=== PATIENT | female | born 1965 | race Caucasian/White ===

== ENCOUNTER → 2017-01-22 | Outpatient (REF) ==
--- NOTE | 2017-01-23 03:35 | REP ---
Clinical: Pain and disability. Technique: Frontal view of the pelvis with neutral and frog lateral views of the bilateral hips. Findings: Pelvis is intact. The bilateral hip joints are symmetric and relatively normal for age. Minimal increased sclerosis to the acetabular roof noted bilaterally and again relatively normal for age. The joint spaces are symmetric and within normal limits. No periarticular calcifications. Surrounding soft tissues normal. Impression: Relatively normal age appropriate pelvis/bilateral hip series. Signed by Lowell Mcnally MD 01/23/2017 03:27 A
--- NOTE | 2017-01-23 05:12 | REP ---
Clinical: Pain and disability. Technique: AP, lateral, coned-down views of the lumbosacral spine. Findings: Alignment and lordosis maintained. Moderate/early advanced degenerative disc osteophyte complex at the L4-5 and L5-L1 levels includes marginal spurring, endplate sclerosis, disc space narrowing and hypertrophic facet changes. Moderate degenerative changes are also appreciated involving the visualized lower thoracic spine. No acute fracture / compression injury or subluxation. Impression: Degenerative changes primarily involving the lower lumbar spine. Signed by Lowell Mcnally MD 01/23/2017 05:04 A
== END ==
LOC: M SMT 13:02
PROVIDERS: ATTEND Internal Medicine
DX: Z00.00 Encounter for general adult medical examination without abnormal findings (principal)

== ENCOUNTER → 2017-03-26 | Outpatient (CLI) | payer OTHER ==
[~2017-03-26] MED LIST: GABA-279 PO; GABA-283 PO; HYDR-2808 PO; MORP15TASA PO; PAME25CA PO; TIZA4CAP3 PO; TRAM50TA2 PO
== END ==
LOC: M LAB 10:44
PROVIDERS: ATTEND Orthopaedic Surgery
DX: Z01.818 Encounter for other preprocedural examination (principal)

== ENCOUNTER 2017-04-03 06:14 | Inpatient (IN) | payer OTHER ==
--- NOTE | 2017-04-01 14:44 | HPE ---
DATE OF ADMISSION: 04/03/2017 ATTENDING PHYSICIAN: Dr. Kat CHIEF COMPLAINT: Work-related injury to her back with back pain radiating to her right leg. HISTORY: This is a pleasant 52-year-old female patient with ongoing back pain since an injury at work on 04/29/2016. She has had persistent pain in her back since original injury. She has been through physical therapy, activity modification, medical management and medication management of her symptoms and injections without improvement of her symptoms. She continues have pain with normal day-to-day activities and activities of daily living. Pain radiates down into her leg right leg. She rates her pain as an 8 out of 10. She has elected for surgery for continued symptoms. She has consented for a right unilateral laminectomy at L4-5 with the interbody fusion at L4-5 with the use of right iliac crest graft and posterolateral fusion the use of the crest graft and pedicle screws. X-rays are notable for transitional anatomy at L5-S1 with a decreased disc space and degenerative changes at L4 above the transitional motion segment. MRI is consistent with a degenerative disc at 4/5 above a transitional motion segment with lesser degree at degenerative changes of 3/4 with some lateral stenosis at 4/5. ALLERGIES: DEMEROL. CURRENT MEDICATIONS - hydrocodone 5/325 as needed for pain - naproxen 375 mg 1 tablet twice a day. She discontinued that 3 days ago. - gabapentin 400 mg one tablet in morning and one tablet in the afternoon. Three tablets at bedtime - Zanaflex 4 mg one tablet up to three times a day MEDICAL HISTORY: Lumbar spondylosis and lumbar degenerative disc disease all related to a work-related injury with positive nerve conduction studies with L5 radiculopathy noted on nerve conduction studies. PAST SURGICAL HISTORY: She has had appendectomy, ear surgery and bilateral tubal ligation. SOCIAL HISTORY: She does not currently smoke. She occasionally uses alcohol. FAMILY HISTORY: Noncontributory. REVIEW OF SYSTEMS: Denies fever or chills. Denies chest pain, shortness breath or cough. Denies difficulty breathing. Denies abdominal pain. Denies nausea or vomiting. Denies recent upper respiratory infection or urinary tract infection (UTI) symptoms. Notes persistent back pain with pain down her right leg. Denies nausea or vomiting. PHYSICAL EXAMINATION: Physical examination today reveals a well-nourished, well-developed, alert female patient. She has a normal mood and affect. She walks with a slow gait. She does wear a lumbar brace. Her gait is slow. She grimaces going from a seated to standing position. The skin around the back is intact. No erythema, edema or ecchymosis. Deep tendon reflexes are trace at the knees, trace at the left ankle and absent at the right ankle. Straight leg raise testing is irritable bilaterally. Neck is supple without adenopathy or jugular venous distention (JVD). Lungs are clear to auscultation without rales or wheeze. Heart with regular rate and rhythm. Bowel sounds are notable. The bilateral lower extremities are well-perfused. CURRENT VITAL SIGNS: Height 63 inches, weight 186 pounds, temperature 99.5, blood pressure 120/90, pulse 96, respirations 18. IMPRESSION: Symptomatic lumbar degenerative disc disease and lumbar spondylolysis with radiculopathy from a work-related injury. PLAN: She has consented for a right unilateral laminectomy L4-5 above an abnormal motion segment with interbody fusion at L4-5 and posterolateral fusion at L4-5 with pedicle screws and right iliac crest graft. LABORATORY DATA: Hemoglobin is 12.6. Her nasal cultures were positive from methicillin resistant Staphylococcus aureus (MRSA) and she was treated per the protocol. Her antibiotic will be switched to vancomycin 1 gram IV prior to the operating room.
[~2017-04-03] VITALS: Ht 157.5 cm; Wt 83.9 kg
[~2017-04-03 06:14] MED LIST changes: -MORP15TASA PO; -TRAM50TA2 PO
[2017-04-03] MEDS ORDERED: CelecoXIB (CeleBREX) 100 MG CAP PO ONE (06:45)
[2017-04-03] MEDS ORDERED: PERCOCET 5MG/325MG TAB PO ONE (06:45)
[2017-04-03] MEDS ORDERED: PREGABALIN 75 MG CAP(LYRICA) PO ONE (06:45)
[2017-04-03] MEDS ORDERED: VANCOMYCIN HCL 1,000 MG, VIAL MATE ADAPTER 1 EACH in D5W 250 ML IV ONE ×3 (06:45→19:00)
[2017-04-03] MEDS ORDERED: LR 1,000 ML IV ONE (07:00)
[2017-04-03] MEDS ORDERED: LIDOCAINE 1% MDV 20ML VIAL SC ONE (07:00)
[2017-04-03] MEDS ORDERED: fentaNYL 250 MCG/5 ML INJECTION (J3010) As Ordered ONE (07:16)
[2017-04-03] MEDS ORDERED: ROCURONIUM BROMIDE 50 MG/5 ML VIAL/SYRINGE As Ordered ONE ×2 (07:16→09:04)
[2017-04-03] MEDS ORDERED: PROPOFOL 200 MG/20 ML VIAL As Ordered ONE ×2 (07:16→12:49)
[2017-04-03] MEDS ORDERED: LIDOCAINE 2% INJ 100 MG/5 ML SDV (FOR ANES.) As Ordered ONE (07:16)
[2017-04-03] MEDS ORDERED: MIDAZOLAM INJ 2 MG/2 ML VIAL (J2250) As Ordered ONE (07:16)
[2017-04-03] MEDS ORDERED: BUPIVACAINE/EPIN 0.25% 30 ML VIAL As Ordered ONE (07:17)
[2017-04-03] MEDS ORDERED: THROMBIN SOLN 20,000 UNITS KIT As Ordered ONE (07:17)
[2017-04-03] MEDS ORDERED: VANCOMYCIN HCL 500 MG/10 ML VIAL (J3370) As Ordered ONE (07:17)
[2017-04-03] MEDS ORDERED: BACITRACIN PWD 50,000 UNITS VIAL As Ordered ONE (07:18)
[2017-04-03] MEDS ORDERED: ceFAZolin 1GM INJ (J0690) As Ordered ONE ×2 (08:16→12:39)
[2017-04-03] MEDS ORDERED: HYDROmorphone HCL 2 MG/ML 1ML VIAL (J1170) As Ordered ONE (08:22)
[2017-04-03] MEDS ORDERED: PHENYLephrine HCL 500 MCG/5 ML (100MCG/ML) SYRINGE (J2370) As Ordered ONE ×2 (08:27→09:02)
[2017-04-03] MEDS ORDERED: ePHEDrine SULFATE 25 MG/5 ML(5MG/ML) SYRINGE As Ordered ONE ×2 (08:43→14:46)
[2017-04-03] MEDS ORDERED: GLYCOPYRROLATE INJ 0.2 MG/ML 2 ML VIAL As Ordered ONE (08:50)
[2017-04-03] MEDS ORDERED: ONDANSETRON 4MG/2ML VIAL (J2405) As Ordered ONE (08:51)
[2017-04-03] MEDS ORDERED: NEOSTIGMINE 1MG/ML 5 ML SYRINGE (J2710) As Ordered ONE (08:51)
[2017-04-03] MEDS ORDERED: PHENYLEPHRINE INJ 10MG/ML VIAL (J2370) As Ordered ONE (09:05)
--- NOTE | 2017-04-03 13:18 | REP ---
Partial lumbar spine series: Three views. History: Spondylosis with radiculopathy. Lumbar spine fusion. 2 minutes 6 seconds of fluoroscopy time is reported. Findings: Initial cross-table lateral portable view of the lumbar spine time stamped 8:48 a.m. demonstrates an intraoperative probe at the dorsal aspect of the lumbar canal at the level of the L4-5 disc. This disc is narrowed. Frontal and lateral fluoroscopically obtained intraprocedural spot radiographs of the lumbar spine demonstrate transpedicular screw and interconnecting shelia fusion bilaterally across the 4-5 level and an interbody disc space device in place. Signed by Stephen Saenz MD 04/03/2017 02:00 P
[2017-04-03] MEDS ORDERED: fentaNYL 100 MCG/2 ML INJECTION (J3010) As Ordered ONE (13:31)
[2017-04-03] MEDS: fentaNYL 100 MCG/2 ML INJECTION (J3010) IV PRN ×4 (13:33→13:51)
[2017-04-03] MEDS ORDERED: LR 1,000 ML IV SCH (13:45)
[2017-04-03] MEDS ORDERED: ONDANSETRON 4MG/2ML VIAL (J2405) IV PRN (13:45)
[2017-04-03] MEDS ORDERED: PERCOCET 5MG/325MG TAB PO PRN ×2 (13:45→14:30)
[2017-04-03] MEDS: MORPHINE 2 MG/ML 1ML SYRINGE IV PRN ×5 (13:58→14:24)
[2017-04-03] MEDS ORDERED: ACETAMINOPHEN TAB 650MG DOSE (2X325MG) PO PRN (14:30)
[2017-04-03] MEDS ORDERED: HYDROmorphone HCL 1 MG/ML SYRINGE (J1170) IV PRN ×4 (14:30→20:30)
[2017-04-03] MEDS: D5W/0.45% SODIUM CHLORIDE 1,000 ML IV SCH (15:35)
[2017-04-03 15:45] VITALS: BP 119/67
[2017-04-03 16:45] VITALS: BP 124/72
[2017-04-03 17:45] VITALS: BP 118/69
[2017-04-03 18:45] VITALS: BP 119/72
[2017-04-03] MEDS: CYCLOBENZAPRINE 10 MG TAB PO PRN (18:57)
[2017-04-03] MEDS: PERCOCET 5MG/325MG TAB PO PRN ×2 (18:57→23:16)
[2017-04-03] MEDS ORDERED: HYDROmorphone HCL 2 MG/ML 1ML VIAL (J1170) IV PRN (20:30)
[2017-04-03] MEDS: PROMETHAZINE INJ 25 MG/ML VIAL (J2550) IV PRN (20:55)
[2017-04-03 22:00] VITALS: BP 115/62
[2017-04-03] MEDS: GABAPENTIN 400 MG CAP PO SCH (23:17)
[2017-04-04] MEDS: D5W/0.45% SODIUM CHLORIDE 1,000 ML IV SCH ×3 (01:59→16:43)
[2017-04-04 02:00] VITALS: BP 118/68
[2017-04-04] MEDS: PROMETHAZINE INJ 25 MG/ML VIAL (J2550) IV PRN ×2 (04:30→16:52)
[2017-04-04 06:00] VITALS: BP 129/71
[2017-04-04] MEDS: CYCLOBENZAPRINE 10 MG TAB PO PRN (11:04)
[2017-04-04] MEDS: GABAPENTIN 400 MG CAP PO SCH ×2 (11:04→20:38)
[2017-04-04] MEDS: SENOKOT S TAB PO SCH ×2 (11:06→20:38)
[2017-04-04] MEDS: MOM 30ML SUSPENSION UDC PO SCH (11:06)
[2017-04-04] MEDS: PERCOCET 5MG/325MG TAB PO PRN ×3 (11:06→20:39)
[2017-04-04] MEDS: MIRALAX *UNIT DOSE* 17GM PACKET PO SCH (11:07)
[2017-04-04 14:00] VITALS: BP 137/83
[2017-04-04] MEDS: tiZANidine 4 MG TAB PO PRN (16:51)
[2017-04-04] MEDS: ONDANSETRON 4 MG TAB (S0181) PO PRN (18:09)
--- NOTE | 2017-04-04 18:17 | RO ---
DATE OF PROCEDURE: 04/03/2017 PREOPERATIVE DIAGNOSIS: Lumbar spondylosis at L4-5 with right greater than left lower extremity radiculopathy. POSTOPERATIVE DIAGNOSIS: Lumbar spondylosis at L4-5 with right greater than left lower extremity radiculopathy. PROCEDURE PERFORMED: Includes a right L4 unilateral laminectomy for decompression of the thecal sac and exiting nerve root, right L5 unilateral laminectomy for decompression of thecal sac and traversing nerve root, L4-5 interbody and intertransverse fusion combined, installation of posterior nonsegmental instrumentation bilateral pedicle screws at L4 and L5, right iliac crest bone graft harvest and placement morselized autograft, interbody device cage at L4-5. SURGEON: Dr. Santiago Kat PAIN COORDINATOR: Kalen Fu PA-C ANESTHESIA: General. ESTIMATED BLOOD LOSS: 250 mL, replaced with crystalloid. No complications. INDICATIONS: Intractable discomfort in the back and also radiating down the right and also sometimes the left lower extremity. The patient has elected for operative intervention. Consent reviewed in detail with the patient including a brent discussion of the pathology involved, procedure proposed, alternatives including doing nothing, risks including but not limited to pain, failure, incomplete relief, need for more surgery, bleeding, blood loss, nerve injury and other issues. The patient agrees to proceed. DESCRIPTION OF PROCEDURE: Identified in the holding area, site and side verified, brought to the operating room. She was positioned on the Edvin frame for exposure of the lumbar spine, knees slightly flexed. Once I and childbirth educator were comfortable with the patient's positioning, she was then sterilely prepped and draped in the usual fashion. I began the procedure on the patient's right side using loupes and a headlamp, Mr. Fu on the left side but through villareal portion of the procedure, we did alternate sides from one side of the table to the other. Next, the incision was based on landmark palpation, outlined with a marking pen and infiltrated with 0.25% Marcaine with epinephrine. The incision was made with a #10 blade knife, developed down through subcuticular tissues to the posterior lumbar fascia. The posterior lumbar fascia was exposed, and I appreciated crossing of the fibers of the posterior lumbar fascia around the L5 level. Next, I reflected the posterior lumbar fascia and the paraspinals at the L4-5 level and dissected down exposing the L4-5 interspace. I utilized the high-speed drill to drill a divot into the lamina of L4 to florencia our position with a Sarmiento-Gómez. We then obtained a cross-table lateral x-ray to verify our level. Next, the appropriate retractors were then installed, and we further exposed the right at L4-5. Next, we then exposed the contralateral side out over the transverse processes of L4 and L5. Because of the transitional anatomy, the L5 transverse process on both sides was not normal. Facet arthropathy was appreciated at L4-5 on sides but especially the patient's right side. Next, we exposed the transverse processes of L4 and L5 on the patient's right side as well. Mr. Fu assisting with Quincy retractors. Next, lymphatic portion of the exposure was accomplished. I then removed posterior lamina of L4 and L5 using Leksells on the patient's right side as well portions of the hypertrophic facet. Next, at this stage, my loupe magnification was removed and headlamp removed, we brought in the operating microscope for the unilateral laminectomy. This facilitated safe use of the high-speed bur and continued participation of Mr. Fu. I utilized the high-speed bur to implement a right unilateral laminectomy extending up through the bare area for undercutting the spinous process of L4. Natalia Fu and I both used the Lukens trap and suction to evacuate morselized bone fragments during this portion of the procedure. These were retained. We extended the dissection laterally through the facet, which was basically removed on the right side at L4-5 and retained for bone graft inferiorly through the lamina and bare area of L5. This allowed direct palpation of the pedicle of L4 and the pedicle of L5. Next, I elevated ligamentum flavum and this was removed using Kerrisons. Next, the exiting nerve root at L4 was directly visualized and appreciated to be free from impingement as it rounded the pedicle of L4 after the decompression. Likewise, I was able to visualize and palpate the nerve root and pedicle of L5. Next, bipolar cautery was utilized for hemostasis. Mr. Fu utilized Tosha retractor to expose disc annulus at L4-5. I opened the annulus using an #11 blade, and I utilized the spatula 7 mm interspace stripper color to verify the interspace at L4-5 and remove some removed some disc material. Next, at this stage, because of the significantly collapsed disc at L4-5, we moved to place pedicle screws in the patient's left side to allow distraction across the interspace. Next, at this stage, the operating microscope was removed from the field. We donned lead gowns and continued the procedure. The fluoroscopy was brought in. Because of the abnormal mammillary processes and posterior elements, we utilized the fluoroscope to project from the posterior aspect the position of the pedicle screw entry points, and these were marked with a divot created with the high-speed drill. Next, once this was accomplished, the fluoroscope was moved into the lateral position, and we entered and cannulated the pedicles at L4 using the pedicle finder followed by a ball-tip probe, followed by a 5.5 tap, followed by probing with the ball-tip probe again to verify pedicle integrity, followed by placement of the pedicle screw. I measured for the pedicle screw off of the ball-tipped probe, and we placed on the left side at L4 a 40 mm screw. L5 pedicle was cannulated in a similar fashion and again placed 6.5 x 40 mm screw left at L5. Next, connecting shelia 45 mm x 5 mm was installed, caps were placed. I distracted across the interspace at L4-5 on the left to open the disc space and locked the screws provisionally. Next, we then turned our attention to obtaining iliac crest bone graft. This was obtained through a separate fascial incision on the right side. It was removed using a Leksell and large Sierra curettes. That wound was irrigated and closed with interrupted stitch. Next, once this was accomplished, we turned our attention back to the right laminectomy defect and the interspace. I then utilized serial conical reamers from a size 7 through a size 10. I utilized a ring curette to remove additional endplate and disc material. Next, I trialed with a size 9 height x 32 mm long trial, and we utilized fluoroscopy to verify cage placement at L4-5 to be adequate and 32 mm was an adequate length. Next, once this was accomplished, we obtained a 32 mm cage. The iliac crest bone graft was added to the cage and utilized to fill the cage. We also placed approximately 5 mL of iliac crest bone graft mixed with demineralized bone matrix putty into the bone funnel, and this was tamped into the interspace prior to placement of the cage. Once this was done, I then placed the Norfolk cage, tamping it into place in the interspace from the right at L4-5. Placement of this case was verified fluoroscopically in the AP and lateral planes. Next, once this was accomplished, the cage insertion tool was removed, I inspected the right laminectomy defect. I appreciated no leaks or impingement. Next, we then positioned to place the pedicle screws on the patient's right side. Again, we utilized fluoroscopy. On the right side, I was able to palpate both pedicles, which assisted in placement. I opened the pedicle with the divot created with the high-speed drill at L4 on the right side, followed by the pedicle finder, followed by the ball-tip guide, the tap, the ball-tip guide to verify the pedicle and placement of screws. I placed a 45 mm screw to the right side at L4. Continuing, L5 pedicle cannulated in a similar fashion. The distraction on the left side was released and the left side was placed in slight compression. On the right, I placed the 40 mm connecting shelia and we compressed on the right, also gentle compression across the interspace and then locked the screws at all four locations using the torque/counter torque device. Next, additional iliac crest bone graft was placed between the transverse processes of L4 and L5 on the right side. Next, we had decorticated the transverse processes. On the patient's left side, we also placed additional local bone mixed with donor bone and demineralized bone matrix putty. We placed it between the transverse processes of L4 and L5. Also, we decorticated the facet complex on the left side at L4-5 and placed bone graft there and into the interlaminar space. The bone graft extended in the transitional anatomy superiorly. Next, final inspection of the wound was accomplished. We also sprinkled vancomycin crystals, approximately 1 gram over the bone graft mass. We also irrigated prior to graft placement. We also irrigated with concentrated bacitracin. At the conclusion of the case, we appreciated no active bleeding. We left no thrombin Gelfoam or cottonoids in the wound, counts were correct, retractors were removed. Posterior lumbar fascia was reapproximated with interrupted stitch, deep dermis with interrupted stitch and the skin was approximated with a Prineo dressing. Once this had cured, we were able to move the patient to the hospital bed, and she was moved to the recovery room in good condition. For further details, please refer to the medical record. Please note that Mr. Fu participated in the entirety of the case in capacity of assistant floor covering printer. Components used for this case include the K2M [place] pedicle screw system, three 40 mm screws x 6.5, one 45 mm screw x 6.5, appropriate end caps, connecting rods, a 45 mm and a 40 mm and a Norfolk 9 mm height 32 mm titanium cage. We also utilized demineralized bone matrix putty and 15 mL of crushed cancellous donor graft. For further details, please refer to medical record.
[2017-04-04 22:00] VITALS: BP 117/64
[2017-04-05] MEDS: tiZANidine 4 MG TAB PO PRN ×3 (00:14→23:42)
[2017-04-05 06:00] VITALS: BP 103/53
[2017-04-05 08:00] VITALS: BP 132/84
[2017-04-05] MEDS: ONDANSETRON 4 MG TAB (S0181) PO PRN (08:01)
[2017-04-05] MEDS: PERCOCET 5MG/325MG TAB PO PRN (08:03)
[2017-04-05] MEDS ORDERED: MAGNESIUM CITRATE 300 ML BTL PO ONE (09:00)
[2017-04-05] MEDS: MOM 30ML SUSPENSION UDC PO SCH (09:03)
[2017-04-05] MEDS: MIRALAX *UNIT DOSE* 17GM PACKET PO SCH (09:03)
[2017-04-05] MEDS: SENOKOT S TAB PO SCH ×2 (09:03→20:32)
[2017-04-05] MEDS: GABAPENTIN 400 MG CAP PO SCH ×2 (09:03→20:32)
[2017-04-05] MEDS ORDERED: MAGNESIUM CITRATE 300 ML BTL PO PRN (11:00)
[2017-04-05] MEDS: CYCLOBENZAPRINE 10 MG TAB PO PRN (12:49)
[2017-04-05] MEDS: traMADol 50 MG TAB PO PRN ×3 (12:49→23:42)
[2017-04-05 14:00] VITALS: BP 118/72
[2017-04-05] MEDS ORDERED: traMADol 50 MG TAB PO ONE (18:00)
[2017-04-05 22:00] VITALS: BP 118/56
[2017-04-06] MEDS: CYCLOBENZAPRINE 10 MG TAB PO PRN ×3 (03:48→21:04)
[2017-04-06 06:00] VITALS: BP 106/57
[2017-04-06] MEDS: MOM 30ML SUSPENSION UDC PO SCH (08:22)
[2017-04-06] MEDS: MIRALAX *UNIT DOSE* 17GM PACKET PO SCH (08:22)
[2017-04-06] MEDS: SENOKOT S TAB PO SCH ×2 (08:22→21:00)
[2017-04-06] MEDS: GABAPENTIN 400 MG CAP PO SCH ×2 (09:00→21:04)
[2017-04-06] MEDS: traMADol 50 MG TAB PO PRN ×3 (09:09→17:37)
[2017-04-06] MEDS: ONDANSETRON 4 MG TAB (S0181) PO PRN (13:06)
[2017-04-06 14:00] VITALS: BP 119/65
[2017-04-06] MEDS: tiZANidine 4 MG TAB PO PRN (16:43)
[2017-04-06 22:00] VITALS: BP 124/62
[2017-04-07] MEDS: traMADol 50 MG TAB PO PRN ×3 (00:50→15:26)
[2017-04-07] MEDS: CYCLOBENZAPRINE 10 MG TAB PO PRN ×2 (04:21→13:02)
[2017-04-07 06:00] VITALS: BP 115/65
[2017-04-07] MEDS ORDERED: TRAM50TA2 PO (07:08)
[2017-04-07] MEDS ORDERED: MORP15TASA PO (07:49)
[2017-04-07] MEDS: MOM 30ML SUSPENSION UDC PO SCH (08:22)
[2017-04-07] MEDS: MIRALAX *UNIT DOSE* 17GM PACKET PO SCH (08:22)
[2017-04-07] MEDS: GABAPENTIN 400 MG CAP PO SCH (08:36)
[2017-04-07] MEDS: tiZANidine 4 MG TAB PO PRN (08:37)
[2017-04-07] MEDS: SENOKOT S TAB PO SCH (08:38)
[2017-04-07] MEDS ORDERED: MORPHINE 15 MG SA TAB PO SCH (09:00)
[2017-04-07 14:00] VITALS: BP 134/76
--- NOTE | 2017-04-07 21:13 | NOCOX ---
DATE OF PROCEDURE: 04/06/2017 INTERPRETATION: Recording overnight oximetry was performed initially on room air. After she consistently demonstrated desaturation into the low 80s, one liter of oxygen was applied. A total of 5 hours and 58 minutes of data was reviewed. Mean oxygen saturation for the study was 92% with a minimum recorded value of 80%. She spent 22.6% of the night (1 hour and 21 minutes) with saturations less than 88%. The longest continuous time with saturations less than or equal to 88% was 14 minutes and 16 seconds. In review of the SpO2 waveform, there are 1-2% variations that may be suggestive of sleep-disordered breathing. IMPRESSION: 1. Nocturnal hypoxemia with adequate supplementation with 1 liter by nasal cannula. 2. 1-2% variations in the SpO2 waveform that may be suggestive of sleep-disordered breathing. Clinical correlation will be necessary. SYLVIA
--- NOTE | 2017-04-17 12:06 | DSES ---
DATE OF ADMISSION: 04/03/2017 DATE OF DISCHARGE: 04/07/2017 ATTENDING PHYSICIAN: Dr. Santiago Kat ADMITTING DIAGNOSES: Intractable low back pain with right sided radicular symptoms. DISCHARGE DIAGNOSES: Intractable low back pain with right lower extremity radicular symptoms, status post right unilateral laminectomy of L4-L5 with interbody fusion at L4-L5 and posterolateral fusion at L4-L5 with pedicle screws and right iliac crest graft. HISTORY: The patient sustained a work injury in April 2016. She has intractable low back pain with right lower extremity symptoms since that have not responded to conservative measures. She has consented for an elective right unilateral laminectomy at L4-L5 with interbody fusion at L4-L5 and posterolateral fusion at L4-L5 with pedicle screws and right iliac crest graft. OPERATION PERFORMED: Right L4 unilateral laminectomy for decompression of the thecal sac and exiting nerve root, right L5 unilateral laminectomy for decompression of thecal sac and traversing nerve root, L4-L5 interbody and intertransverse fusion combined, installation of posterior nonsegmental instrumentation, bilateral pedicle screws at L4-L5, right iliac crest bone graft harvest and placement of a morselized autograft and interbody device cage at L4-L5. HOSPITAL COURSE: Surgery was under general anesthesia and was without complication. During the hospitalization, she did develop nocturnal hypoxemia and that improved with supplemental oxygen. She has followed up with her primary auto care center manager for this. She was discharged with a specially fitted brace and oral pain medications. She is to resume her preoperative medications and diet. The patient will use thromboembolic deterrent stockings for deep venous thrombosis prophylaxis. She will followup in our office in 3 days for evaluation. She is encouraged to contact our office sooner if there is any fevers, chills, increased pain, radiating symptoms into the extremities, problems with bowel or bladder control, erythema or drainage from the wound or any other concerns. Please see medical record for additional details. MTDD
== END 2017-04-07 15:50 | disposition home or self-care (01) | DRG 304 ==
LOC: M OR 06:14 → EEVIPCON 07:30 → M MS5PR 15:06
PROVIDERS: ADMIT Orthopaedic Surgery; ATTEND Orthopaedic Surgery
PROC: 0SG00AJ Fusion of Lumbar Vertebral Joint with Interbody Fusion Device, Posterior Approach, Anterior Column, Open Approach (ICD-10-PCS; 2017-04-03)
PROC: 0QB30ZZ Excision of Left Pelvic Bone, Open Approach (ICD-10-PCS; 2017-04-03)
PROC: 0SG0071 Fusion of Lumbar Vertebral Joint with Autologous Tissue Substitute, Posterior Approach, Posterior Column, Open Approach (ICD-10-PCS; principal; 2017-04-03 07:30)
DX: M47.26 Other spondylosis with radiculopathy, lumbar region (principal); M51.36 Other intervertebral disc degeneration, lumbar region; Z79.899 Other long term (current) drug therapy

== ENCOUNTER → 2019-12-09 | Outpatient (REF) | payer MEDICARE, OTHER ==
[~2019-12-09] MED LIST changes: +GABA-1171 PO; -GABA-279 PO; -GABA-283 PO; +GABA-845 PO; +MORP15TASA PO; +TIZA4CAP PO; -TIZA4CAP3 PO; +TRAM50TA2 PO
[2019-12-09 16:16] LABS: BASO # 0.1 10^3/uL (0.0-0.2); BASO % 1.2 % (0.0-1.0); EOS # 0.2 10^3/uL (0.0-0.5); EOS % 3.8 % (0.0-3.0); HEMATOCRIT 40.6 % (36.0-47.0); HEMOGLOBIN 13.1 g/dl (12.0-15.5); LYMPH # 1.5 10^3/uL (1.5-5.0); LYMPH % 30.2 % (24.0-44.0); MEAN CORPUSCULAR HEMOGLOBIN 29.2 pg (27.0-33.0); MEAN CORPUSCULAR HGB CONC 32.3 g/dl (32.0-36.5); MEAN CORPUSCULAR VOLUME 90.6 fl (80.0-96.0); MONO # 0.4 10^3/uL (0.0-0.8); MONO % 7.9 % (0.0-5.0); NEUTROPHILS # 2.9 10^3/uL (1.5-8.5); NEUTROPHILS % 56.7 % (36.0-66.0); PLATELET COUNT, AUTOMATED 259 10^3/uL (150-450); RED BLOOD COUNT 4.48 10^6/uL (4.00-5.40)
[2019-12-09 16:21] LABS: ALT/SGPT 39 U/L (12-78); BILIRUBIN,TOTAL 0.4 MG/DL (0.2-1.0); BLOOD UREA NITROGEN 18 MG/DL (7-18); CALCIUM LEVEL 9.2 MG/DL (8.5-10.1); CARBON DIOXIDE LEVEL 31 MEQ/L (21-32); CHLORIDE LEVEL 106 MEQ/L (98-107); CHOLESTEROL LEVEL 225 MG/DL (<200); CHOLESTEROL RISK RATIO 3.214 (<5); CREATININE FOR GFR 0.65 MG/DL (0.55-1.30); FREE T4 0.79 NG/DL (0.76-1.46); GLOMERULAR FILTRATION RATE > 60.0 (>51); GLUCOSE, FASTING 88 MG/DL (70-100); HDL CHOLESTEROL 70 MG/DL (>40); LDL CHOLESTEROL 143 MG/DL (<100); NON-HDL-C 155 MG/DL; POTASSIUM SERUM 4.4 MEQ/L (3.5-5.1); SODIUM LEVEL 141 MEQ/L (136-145); TOTAL PROTEIN 7.2 GM/DL (6.4-8.2); TRIGLYCERIDES LEVEL 58 MG/DL (<150)
[2019-12-09 16:22] LABS: APPEARANCE, URINE CLEAR (CLEAR); BACTERIA, URINE AUTO 1+ (NEGATIVE); BILIRUBIN, URINE AUTO NEGATIVE (NEGATIVE); BLOOD, URINE BLOOD NEGATIVE (NEGATIVE); COLOR, URINE YELLOW (YELLOW); GLUCOSE, URINE (UA) AUTO NEGATIVE (NEGATIVE); KETONE, URINE AUTO NEGATIVE (NEGATIVE); LEUKOCYTE ESTERASE, URINE AUTO NEGATIVE (NEGATIVE); MUCUS, URINE SMALL (NEGATIVE); NITRITE, URINE AUTO NEGATIVE (NEGATIVE); PROTEIN, URINE AUTO NEGATIVE (NEGATIVE); RBC, URINE AUTO 1 /HPF (0-3); SPECIFIC GRAVITY URINE AUTO 1.021 (1.002-1.035); SQUAMOUS EPITHELIAL CELL UR AU 3 /HPF (0-6); UROBILINOGEN, URINE AUTO 0.2 mg/dL (0.0-2.0); WBC, URINE AUTO 0 /HPF (0-3)
== END ==
LOC: M SFHCCLAY 10:57
PROVIDERS: ATTEND Physician Assistant
DX: Z13.6 Encounter for screening for cardiovascular disorders (principal); Z79.899 Other long term (current) drug therapy; R01.1 Cardiac murmur, unspecified

== ENCOUNTER → 2019-12-16 | Outpatient (REF) | payer MEDICARE, OTHER ==
[~2019-12-16] MED LIST changes: +BUPR7.5D TOP; +CAYE450C3 PO; +DULO1CAP5 PO; +GABA800T4 PO; +MOBI4TAB PO; +TURM500C PO
== END ==
LOC: M LAB REF 12:55
PROVIDERS: ATTEND Otolaryngology
DX: H90.3 Sensorineural hearing loss, bilateral (principal); H66.3X1 Other chronic suppurative otitis media, right ear; H72.91 Unspecified perforation of tympanic membrane, right ear

== ENCOUNTER → 2020-01-05 | Outpatient (CLI) | payer MEDICARE, OTHER ==
--- NOTE | 2020-01-14 17:14 | SLEEPHOME ---
DATE OF PROCEDURE: 01/05/2020 ORDERED BY: Dr. Hooper [facility] home sleep testing was performed due to concern for the obstructive sleep apnea syndrome in this patient with a history of snoring. For testing a nocturnal T3 respiratory monitoring device was used. Continuous record made of pulse, oxygen saturation, airflow, chest and abdominal strain, and body position. 9 hours and 59 minutes of data were reviewed. There were 9 hours and 4 minutes marked as time in bed. During the interval marked time in bed, there were 94 respiratory events identified of 10 seconds in duration or greater for a respiratory event index of 10.4. The events were primarily obstructive; 26 mixed and central apneas were also seen. Baseline pulse rate 73 beats per minute. Pulse rate ranged 60-101. Baseline saturation was 94%. Saturations fell to 82%. Testing was performed in both the supine and nonsupine positions. IMPRESSION: Abnormal home sleep testing with repetitive respiratory events and oxygen desaturations to 82% with a respiratory event index of 10.4 is consistent with the obstructive sleep apnea syndrome. RECOMMENDATIONS: The patient should be encouraged to undergo formal sleep evaluation.
== END ==
LOC: M SLEEP HO 10:10
PROVIDERS: ATTEND Internal Medicine Cardiovascular Disease
DX: R06.83 Snoring (principal)

== ENCOUNTER → 2020-01-09 | Outpatient (CLI) | payer OTHER | LOC: M LABSMTC 10:11 | PROVIDERS: ATTEND Anesthesiology | DX: Z01.818 Encounter for other preprocedural examination (principal); Z11.59 Encounter for screening for other viral diseases | CPT/HCPCS: C9803; U0003 ==

== ENCOUNTER 2020-01-12 08:10 | Day surgery (SDC) | payer MEDICARE, OTHER ==
[~2020-01-12] VITALS: Ht 157.5 cm; Wt 80.6 kg
[~2020-01-12 08:10] MED LIST changes: +NS 1,000 ML IV ONE
[2020-01-12] MEDS ORDERED: LIDOCAINE 2% 100MG/5ML SDV (FOR ANES.) As Ordered ONE (09:01)
[2020-01-12] MEDS ORDERED: propofoL 200 MG/20 ML VIAL As Ordered ONE ×2 (09:01→09:16)
--- NOTE | 2020-01-12 09:33 | ROOR ---
Patient Name: Jennifer Fields Procedure Date: 01/12/2020 8:57 AM Date of : 1965 Age: 54 Room: [facility] Gender: Female Note Status: Finalized Procedure: Colonoscopy Indications: Screening for colorectal malignant neoplasm Providers: Bryan Drake MD Referring MD: PITA Yusuf pa-c Requesting Provider: Medicines: Monitored Anesthesia Care Complications: No immediate complications. Procedure: Pre-Anesthesia Assessment: - Prior to the procedure, a History and Physical was performed, and patient medications and allergies were reviewed. The patient is competent. The risks and benefits of the procedure and the sedation options and risks were discussed with the patient. All questions were answered and informed consent was obtained. Patient identification and proposed procedure were verified by the physician and the nurse in the procedure room. Mental Status Examination: alert and oriented. Airway Examination: normal oropharyngeal airway and neck mobility. Respiratory Examination: clear to auscultation. CV Examination: normal. Prophylactic Antibiotics: The patient does not require prophylactic antibiotics. Prior Anticoagulants: The patient has taken no previous anticoagulant or antiplatelet agents. ASA Grade Assessment: II - A patient with mild systemic disease. After reviewing the risks and benefits, the patient was deemed in satisfactory condition to undergo the procedure. The anesthesia plan was to use monitored anesthesia care (MAC). Immediately prior to administration of medications, the patient was re-assessed for adequacy to receive sedatives. The heart rate, respiratory rate, oxygen saturations, blood pressure, adequacy of pulmonary ventilation, and response to care were monitored throughout the procedure. The physical status of the patient was re-assessed after the procedure. The Colonoscope was introduced through the anus and advanced to the cecum, identified by appendiceal orifice and ileocecal valve. The colonoscopy was somewhat difficult due to restricted mobility of the colon. The patient tolerated the procedure well. The quality of the bowel preparation was good. Moderate Sedation: Moderate (conscious) sedation was [Sedation Professional]. [Parameters Monitored]. [Sedation Duration Time]. Findings: Hemorrhoids were found on perianal exam. A few small-mouthed diverticula were found in the sigmoid colon. A 4 mm polyp was found in the sigmoid colon. The polyp was sessile. The polyp was removed with a hot snare. Resection and retrieval were complete. Estimated blood loss: none. Two sessile polyps were found in the rectum. The polyps were diminutive in size. Estimated blood loss was minimal. These polyps were removed with a cold snare. Resection and retrieval were complete. Estimated blood loss was minimal. The retroflexed view of the distal rectum and anal verge was normal and showed no anal or rectal abnormalities. Impression: - Hemorrhoids found on perianal exam. - Diverticulosis in the sigmoid colon. - One 4 mm polyp in the sigmoid colon, removed with a hot snare. Resected and retrieved. - Two diminutive polyps in the rectum, removed with a cold snare. Resected and retrieved. - The distal rectum and anal verge are normal on retroflexion view. Recommendation: - Discharge patient to home (ambulatory). - High fiber diet. - Await pathology results. - Telephone my office for pathology results in 1 week. Bryan Drake MD Bryan Darke MD 01/12/2020 9:33:17 AM Electronically signed by Bryan Drake MD Number of Addenda: 0 Note Initiated On: 01/12/2020 8:57 AM Estimated Blood Loss: Estimated blood loss was minimal.
[2020-01-12 09:59] VITALS: BP 131/96
== END 2020-01-12 10:01 | disposition home or self-care (01) ==
LOC: M OPP 08:10
PROVIDERS: ATTEND Surgery
DX: Z12.11 Encounter for screening for malignant neoplasm of colon (principal); K63.5 Polyp of colon; K62.1 Rectal polyp; K57.30 Diverticulosis of large intestine without perforation or abscess without bleeding; K64.9 Unspecified hemorrhoids; Z79.899 Other long term (current) drug therapy; Z88.5 Allergy status to narcotic agent; Z87.891 Personal history of nicotine dependence

== ENCOUNTER → 2020-02-03 | Outpatient (REF) | payer MEDICARE, OTHER ==
[~2020-02-03] MED LIST changes: -HYDR-2808 PO; +HYDR-4429 PO; -NS 1,000 ML IV ONE
== END ==
LOC: M SFHCCLAY 14:46
PROVIDERS: ATTEND Physician Assistant
DX: Z12.4 Encounter for screening for malignant neoplasm of cervix (principal)
CPT/HCPCS: 87624; G0123

== ENCOUNTER → 2020-02-10 | Outpatient (CLI) | payer MEDICARE, OTHER ==
[~2020-02-10] MED LIST changes: +PROHANCE 279.3MG/ML 15ML VIAL As Ordered ONE
--- NOTE | 2020-02-10 12:32 | REP ---
MRI brain/IACs: 02/10/2020. Indication: Hearing loss. Technique: Multiplanar short and long TR sequences of the brain/IACs were performed including IV gadolinium imaging. Comparison: None. Findings: There are no cerebellopontine/medullary angle masses or abnormal fluid collections. Right-sided mastoid effusion is noted. The membranous labyrinth are unremarkable. There is no intracranial mass effect or hydrocephalous. No areas of restricted diffusion are present. There are a few small areas of elevated white matter T2 signal within the cerebral hemispheres most consistent with early chronic small vessel disease. Impression: Small right mastoid effusion. 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 No evidence of an acute intracranial process. Electronically Signed by Berto Hartley DO 02/10/2020 12:24 P
== END ==
LOC: M RAD 10:13
PROVIDERS: ATTEND Physician Assistant Medical
DX: H90.A31 Mixed conductive and sensorineural hearing loss, unilateral, right ear with restricted hearing on the contralateral side (principal); I67.82 Cerebral ischemia
CPT/HCPCS: 70553; A9576

== ENCOUNTER → 2020-08-10 | Outpatient (REF) | payer OTHER ==
[~2020-08-10] MED LIST changes: -PROHANCE 279.3MG/ML 15ML VIAL As Ordered ONE
[2020-08-10 13:06] LABS: BASO # 0.1 10^3/uL (0.0-0.2); BASO % 1.1 % (0.0-1.0); EOS # 0.2 10^3/uL (0.0-0.5); EOS % 4.4 % (0.0-3.0); HEMATOCRIT 40.3 % (36.0-47.0); HEMOGLOBIN 12.6 g/dl (12.0-15.5); LYMPH # 1.3 10^3/uL (1.5-5.0); MEAN CORPUSCULAR HEMOGLOBIN 28.6 pg (27.0-33.0); MEAN CORPUSCULAR HGB CONC 31.3 g/dl (32.0-36.5); MEAN CORPUSCULAR VOLUME 91.6 fl (80.0-96.0); MONO # 0.4 10^3/uL (0.0-0.8); MONO % 8.5 % (0.0-5.0); NEUTROPHILS # 2.6 10^3/uL (1.5-8.5); NEUTROPHILS % 57.8 % (36.0-66.0); PLATELET COUNT, AUTOMATED 241 10^3/uL (150-450); WHITE BLOOD COUNT 4.6 10^3/uL (4.0-10.0)
[2020-08-10 13:23] LABS: BLOOD UREA NITROGEN 19 MG/DL (7-18); CALCIUM LEVEL 9.3 MG/DL (8.5-10.1); CARBON DIOXIDE LEVEL 33 MEQ/L (21-32); CHLORIDE LEVEL 106 MEQ/L (98-107); CREATININE FOR GFR 0.63 MG/DL (0.55-1.30); GLOMERULAR FILTRATION RATE > 60.0 (>51); GLUCOSE, FASTING 100 MG/DL (70-100); POTASSIUM SERUM 4.2 MEQ/L (3.5-5.1); SODIUM LEVEL 141 MEQ/L (136-145)
== END ==
LOC: M SFHCPLAZ 09:37
PROVIDERS: ATTEND Physician Assistant
DX: Z01.818 Encounter for other preprocedural examination (principal)

== ENCOUNTER → 2021-01-30 | Outpatient (REF) | payer MEDICARE ==
[~2021-01-30] MED LIST changes: +GABA-283 PO; -GABA-845 PO
[2021-01-30 16:56] LABS: BASO % 0.8 % (0.0-1.0); EOS # 0.3 10^3/uL (0.0-0.5); EOS % 6.2 % (0.0-3.0); HEMATOCRIT 40.9 % (36.0-47.0); HEMOGLOBIN 13.1 g/dl (12.0-15.5); LYMPH # 1.3 10^3/uL (1.5-5.0); MEAN CORPUSCULAR HEMOGLOBIN 29.4 pg (27.0-33.0); MEAN CORPUSCULAR VOLUME 91.7 fl (80.0-96.0); MONO # 0.3 10^3/uL (0.0-0.8); MONO % 7.1 % (2.0-8.0); NEUTROPHILS # 2.8 10^3/uL (1.5-8.5); NEUTROPHILS % 58.7 % (36.0-66.0); PLATELET COUNT, AUTOMATED 238 10^3/uL (150-450); RED BLOOD COUNT 4.46 10^6/uL (4.00-5.40); WHITE BLOOD COUNT 4.8 10^3/uL (4.0-10.0)
[2021-01-30 17:26] LABS: ALBUMIN 3.9 GM/DL (3.2-5.2); ALT/SGPT 49 U/L (12-78); BILIRUBIN,TOTAL 0.5 MG/DL (0.2-1.0); BLOOD UREA NITROGEN 18 MG/DL (7-18); CARBON DIOXIDE LEVEL 29 MEQ/L (21-32); CHLORIDE LEVEL 109 MEQ/L (98-107); CHOLESTEROL LEVEL 222 MG/DL (<200); CHOLESTEROL RISK RATIO 4.826 (<5); CREATININE FOR GFR 0.65 MG/DL (0.55-1.30); FREE T4 0.81 NG/DL (0.76-1.46); GLOMERULAR FILTRATION RATE > 60.0 (>51); GLUCOSE, FASTING 92 MG/DL (70-100); HDL CHOLESTEROL 46 MG/DL (>40); LDL CHOLESTEROL 149 MG/DL (<100); NON-HDL-C 176 MG/DL; POTASSIUM SERUM 4.3 MEQ/L (3.5-5.1); SODIUM LEVEL 141 MEQ/L (136-145); TOTAL PROTEIN 7.3 GM/DL (6.4-8.2); TRIGLYCERIDES LEVEL 135 MG/DL (<150)
== END ==
LOC: M SFHCCLAY 10:02
PROVIDERS: ATTEND Nurse Practitioner Family
DX: E78.00 Pure hypercholesterolemia, unspecified (principal); E66.9 Obesity, unspecified; Z68.33 Body mass index [BMI] 33.0-33.9, adult

== ENCOUNTER → 2021-06-11 | Outpatient (REF) | payer MEDICARE | LOC: M LAB REF 11:47 | PROVIDERS: ATTEND Physician Assistant Medical | DX: H92.11 Otorrhea, right ear (principal) ==

== ENCOUNTER → 2021-06-26 | Outpatient (REF) | payer MEDICARE, OTHER | LOC: M SFHCCLAY 09:34 | PROVIDERS: ATTEND Nurse Practitioner Family | DX: Z01.419 Encounter for gynecological examination (general) (routine) without abnormal findings (principal); N89.8 Other specified noninflammatory disorders of vagina | CPT/HCPCS: 87070; 87077; G0123 ==

== ENCOUNTER → 2021-08-15 | Outpatient (REF) | payer MEDICARE | LOC: M LAB REF 17:13 | PROVIDERS: ATTEND Otolaryngology | DX: H72.91 Unspecified perforation of tympanic membrane, right ear (principal); H66.3X1 Other chronic suppurative otitis media, right ear; H90.A31 Mixed conductive and sensorineural hearing loss, unilateral, right ear with restricted hearing on the contralateral side ==

== ENCOUNTER → 2022-06-27 | Outpatient (REF) | payer MEDICARE ==
[2022-06-27 18:29] LABS: BASO # 0.1 10^3/uL (0.0-0.2); BASO % 1.1 % (0.0-1.0); EOS # 0.2 10^3/uL (0.0-0.5); EOS % 4.9 % (0.0-3.0); HEMATOCRIT 41.6 % (36.0-47.0); HEMOGLOBIN 13.2 g/dl (12.0-15.5); LYMPH # 1.3 10^3/uL (1.5-5.0); LYMPH % 28.5 % (24.0-44.0); MEAN CORPUSCULAR HEMOGLOBIN 29.8 pg (27.0-33.0); MEAN CORPUSCULAR HGB CONC 31.7 g/dl (32.0-36.5); MEAN CORPUSCULAR VOLUME 93.9 fl (80.0-96.0); MONO # 0.4 10^3/uL (0.0-0.8); MONO % 7.9 % (2.0-8.0); NEUTROPHILS # 2.7 10^3/uL (1.5-8.5); NEUTROPHILS % 57.4 % (36.0-66.0); PLATELET COUNT, AUTOMATED 242 10^3/uL (150-450); RED BLOOD COUNT 4.43 10^6/uL (4.00-5.40); WHITE BLOOD COUNT 4.7 10^3/uL (4.0-10.0)
[2022-06-27 20:49] LABS: FOLLICLE STIMULATING HORMONE 118.6 mIU/ML
[2022-06-27 21:35] LABS: ALBUMIN 4.3 G/DL (3.2-5.2); ALT/SGPT 21 U/L (7.0-40); BILIRUBIN,TOTAL 0.4 MG/DL (0.3-1.2); BLOOD UREA NITROGEN 19 MG/DL (9-23); CALCIUM LEVEL 10.4 MG/DL (8.5-10.1); CARBON DIOXIDE LEVEL 32 MMOL/L (20-31); CHLORIDE LEVEL 105 MMOL/L (98-107); CHOLESTEROL LEVEL 223 MG/DL (<200); CREATININE FOR GFR 0.62 MG/DL (0.55-1.30); FREE T4 1.48 NG/DL (0.89-1.76); GLOMERULAR FILTRATION RATE > 60.0 (>51); GLUCOSE, FASTING 93 MG/DL (60-100); HDL CHOLESTEROL 79.6 MG/DL (>40); LDL CHOLESTEROL 131.6 MG/DL (<100); NON-HDL-C 143 MG/DL; POTASSIUM SERUM 4.6 MMOL/L (3.5-5.1); SODIUM LEVEL 142 MMOL/L (136-145); THYROID STIMULATING HORMONE 3.901 uIU/ML (0.55-4.78); TOTAL PROTEIN 7.1 G/DL (5.7-8.2); TRIGLYCERIDES LEVEL 59 MG/DL (<150)
[2022-06-27 22:24] LABS: LUTEINIZING HORMONE 34.8 mIU/ML
== END ==
LOC: M SFHCCLAY 09:27
PROVIDERS: ATTEND Nurse Practitioner Family
DX: Z01.419 Encounter for gynecological examination (general) (routine) without abnormal findings (principal); Z12.31 Encounter for screening mammogram for malignant neoplasm of breast; E78.00 Pure hypercholesterolemia, unspecified; E66.9 Obesity, unspecified; Z68.33 Body mass index [BMI] 33.0-33.9, adult
CPT/HCPCS: 80053; 80061; 82672; 83001; 83002; 84439; 84443; 85025; G0123

== ENCOUNTER → 2022-07-31 | Outpatient (CLI) | payer MEDICARE | LOC: M SOG 08:48 | PROVIDERS: ATTEND Physician Assistant | DX: M18.11 Unilateral primary osteoarthritis of first carpometacarpal joint, right hand (principal) ==

== ENCOUNTER → 2023-09-11 | Outpatient (REF) | payer MEDICARE ==
[~2023-09-11] MED LIST changes: -GABA-283 PO; +GABA-284 PO
[2023-09-11 13:03] LABS: BASO % 0.9 % (0.0-1.0); EOS # 0.3 10^3/uL (0.0-0.5); EOS % 6.7 % (0.0-3.0); HEMATOCRIT 39.4 % (36.0-47.0); HEMOGLOBIN 12.6 g/dl (12.0-15.5); LYMPH # 1.6 10^3/uL (1.5-5.0); LYMPH % 34.6 % (24.0-44.0); MEAN CORPUSCULAR HEMOGLOBIN 29.6 pg (27.0-33.0); MEAN CORPUSCULAR VOLUME 92.7 fl (80.0-96.0); MONO # 0.4 10^3/uL (0.0-0.8); MONO % 8.8 % (2.0-8.0); NEUTROPHILS # 2.3 10^3/uL (1.5-8.5); NEUTROPHILS % 48.6 % (36.0-66.0); PLATELET COUNT, AUTOMATED 256 10^3/uL (150-450); RED BLOOD COUNT 4.25 10^6/uL (4.00-5.40); WHITE BLOOD COUNT 4.7 10^3/uL (4.0-10.0)
[2023-09-11 13:33] LABS: ALKALINE PHOSPHATASE 83 U/L (46-116); ALT/SGPT 23 U/L (7.0-40); AST/SGOT 20 U/L (<34); BILIRUBIN,TOTAL 0.3 MG/DL (0.3-1.2); BLOOD UREA NITROGEN 16 MG/DL (9-23); CALCIUM LEVEL 8.9 MG/DL (8.5-10.1); CARBON DIOXIDE LEVEL 32 MMOL/L (20-31); CHLORIDE LEVEL 109 MMOL/L (98-107); CHOLESTEROL LEVEL 194 MG/DL (<200); CHOLESTEROL RISK RATIO 3.45 (<5); CREATININE FOR GFR 0.76 MG/DL (0.55-1.30); GLOMERULAR FILTRATION RATE > 60.0 (>51); GLUCOSE, FASTING 79 MG/DL (60-100); HDL CHOLESTEROL 56.2 MG/DL (>40); LDL CHOLESTEROL 113.2 MG/DL (<100); NON-HDL-C 137.8 MG/DL; POTASSIUM SERUM 4.4 MMOL/L (3.5-5.1); SODIUM LEVEL 145 MMOL/L (136-145); TOTAL PROTEIN 6.9 G/DL (5.7-8.2); TRIGLYCERIDES LEVEL 123 MG/DL (<150)
== END ==
LOC: M SFHCCLAY 09:17
PROVIDERS: ATTEND Nurse Practitioner Family
DX: Z01.419 Encounter for gynecological examination (general) (routine) without abnormal findings (principal); E78.00 Pure hypercholesterolemia, unspecified; E66.9 Obesity, unspecified; Z68.33 Body mass index [BMI] 33.0-33.9, adult

== ENCOUNTER → 2024-08-23 | Outpatient (CLI) | payer MEDICARE ==
[~2024-08-23] MED LIST changes: +GABA-1635 PO; -GABA800T4 PO
== END ==
LOC: M CLY 10:44
PROVIDERS: ATTEND Nurse Practitioner Family
DX: R03.0 Elevated blood-pressure reading, without diagnosis of hypertension (principal); Z87.891 Personal history of nicotine dependence

== ENCOUNTER → 2024-08-23 | Outpatient (REF) | payer MEDICARE ==
[2024-08-23 17:18] LABS: BASO # 0.1 10^3/uL (0.0-0.2); BASO % 1.4 % (0.0-1.0); EOS # 0.2 10^3/uL (0.0-0.5); EOS % 4.9 % (0.0-3.0); HEMATOCRIT 39.8 % (36.0-47.0); HEMOGLOBIN 13.8 g/dl (12.0-15.5); LYMPH # 1.4 10^3/uL (1.5-5.0); LYMPH % 31.9 % (24.0-44.0); MEAN CORPUSCULAR HGB CONC 34.7 g/dl (32.0-36.5); MEAN CORPUSCULAR VOLUME 92.3 fl (80.0-96.0); MONO # 0.3 10^3/uL (0.0-0.8); NEUTROPHILS # 2.3 10^3/uL (1.5-8.5); NEUTROPHILS % 53.8 % (36.0-66.0); PLATELET COUNT, AUTOMATED 227 10^3/uL (150-450); RED BLOOD COUNT 4.31 10^6/uL (4.00-5.40); WHITE BLOOD COUNT 4.3 10^3/uL (4.0-10.0)
[2024-08-23 17:29] LABS: ALBUMIN 3.8 G/DL (3.2-5.2); ALKALINE PHOSPHATASE 81 U/L (35-104); ALT/SGPT 27 U/L (7.0-40); AST/SGOT 22 U/L (<34); BILIRUBIN,TOTAL 0.5 MG/DL (0.3-1.2); BLOOD UREA NITROGEN 18 MG/DL (9-23); CALCIUM LEVEL 9.2 MG/DL (8.5-10.1); CARBON DIOXIDE LEVEL 29 MMOL/L (20-31); CHLORIDE LEVEL 107 MMOL/L (98-107); CHOLESTEROL LEVEL 208 MG/DL (<200); CHOLESTEROL RISK RATIO 3.27 (<5); CREATININE FOR GFR 0.61 MG/DL (0.55-1.30); FREE T4 0.87 NG/DL (0.89-1.76); GLOMERULAR FILTRATION RATE > 60.0 (>51); GLUCOSE, FASTING 94 MG/DL (60-100); HDL CHOLESTEROL 63.6 MG/DL (>40); LDL CHOLESTEROL 127.6 MG/DL (<100); NON-HDL-C 144.4 MG/DL; POTASSIUM SERUM 4.1 MMOL/L (3.5-5.1); SODIUM LEVEL 145 MMOL/L (136-145); TOTAL PROTEIN 7.1 G/DL (5.7-8.2); TRIGLYCERIDES LEVEL 84 MG/DL (<150)
[2024-08-23 17:31] LABS: THYROID STIMULATING HORMONE 2.397 uIU/ML (0.55-4.78)
[2024-08-23 17:32] LABS: HEMOGLOBIN A1c 5.4 % (4.0-6.0)
== END ==
LOC: M SFHCCLAY 10:26
PROVIDERS: ATTEND Nurse Practitioner Family
DX: Z00.00 Encounter for general adult medical examination without abnormal findings (principal); E78.00 Pure hypercholesterolemia, unspecified; E66.9 Obesity, unspecified; Z68.33 Body mass index [BMI] 33.0-33.9, adult; Z12.39 Encounter for other screening for malignant neoplasm of breast; Z13.1 Encounter for screening for diabetes mellitus

== ENCOUNTER → 2024-09-15 | Outpatient (CLI) | payer MEDICARE | LOC: M SLEEP HO 11:49 | PROVIDERS: ATTEND Nurse Practitioner Family | DX: G47.33 Obstructive sleep apnea (adult) (pediatric) (principal); R40.0 Somnolence ==

== ENCOUNTER → 2024-10-07 | Outpatient (CLI) | payer MEDICARE | LOC: M SOG 07:53 | PROVIDERS: ATTEND Physician Assistant | DX: M18.11 Unilateral primary osteoarthritis of first carpometacarpal joint, right hand (principal); M25.531 Pain in right wrist; M19.031 Primary osteoarthritis, right wrist ==